=== PATIENT | female | born 1990 | race Caucasian/White ===

== ENCOUNTER 2023-01-02 14:10 | Emergency (ER) | payer MEDICAID, SELFPAY ==
[2023-01-02 14:28] VITALS: BP 121/72; PULSE 80; RESP 19; TEMP 36.6; O2SAT 98; BMI 22.3
--- NOTE | 2023-01-02 14:28 | ED.GENADULT ---
HPI - General Adult General Chief complaint: Dental/Oral Stated complaint: teeth pain Time Seen by Provider: 01/02/23 14:42 Source: patient Mode of arrival: ambulatory Limitations: no limitations History of Present Illness HPI narrative: Patient is a 32 year old assigned female at with no reported medical history presenting to the emergency department today with right lower dental pain. Patient states that she cracked her tooth yesterday and has been trying to get into a dentist since it happened. Patient denies any dizziness, lightheadedness, abdominal pain, nausea, vomiting, fever, chills, blurry vision, double vision, loss of vision, chest pain, difficulty breathing, shortness of breath, back pain, night sweats, pain with urination, increased urinary frequency, increased urinary urgency, blood in her urine or stool, syncope or a near syncopal episode, recent trauma or falls, bowel incontinence, bladder incontinence, bowel retention, bladder retention, or any other complaints at this time. Onset (ago): day(s) (1) Location: mouth Radiation: non-radiation Severity: mild Severity scale (1-10): 3 Quality: dull Pain Consistency: constant Relieving factors: none Exacerbating factors: none Associated symptoms: denies other symptoms Treatments prior to arrival: other (tylenol) Related Data Previous Rx's Medication Instructions Recorded chlorhexidine gluconate 0.12 % 15 ml buccal BID #118 mL 01/02/23 mouthwash (Peridex) oxycodone 5 mg tablet 5 mg PO Q6H PRN pain #7 tabs 01/02/23 penicillin V potassium 500 mg 500 mg PO BID 7 days #14 tabs 01/02/23 tablet Allergies Allergy/AdvReac Type Severity Reaction Status Date / Time hydromorphone [From DILAUDID] AdvReac Mild HALLUCINATI Verified 01/02/23 14:28 ONS erythromycin base AdvReac Unknown STOMACH Verified 01/02/23 14:28 [ERYTHROMYCIN BASE] UPSET NSAIDS (Non-Steroidal AdvReac Unknown kidney Verified 01/02/23 14:28 Anti-Inflamma failure [NSAIDS] Erythromycin Allergy Unknown sick Uncoded 01/02/23 14:28 nsaids Allergy Unknown kidney pain Uncoded 01/02/23 14:28 Review of Systems Constitutional: Constitutional: Reports no additional constitutional complaints, Denies chills, Denies fever(s) and Denies night sweats Eyes: Eyes: Reports no additional eye complaints, Denies blurry vision, Denies change in vision, Denies diplopia, Denies eye discharge, Denies loss of vision and Denies eye pain ENT: Denies dizziness and Reports mouth pain Cardiovascular: Cardiovascular: Reports no additional cardiovascular complaints, Denies chest pain, Denies lightheadedness, Denies Loss of Consciousness and Denies dyspnea Respiratory: Respiratory: Reports no additional respiratory complaints and Denies dyspnea Gastrointestinal: Gastrointestinal: Reports no additional gastrointestinal complaints, Denies abdominal pain, Denies melena, Denies hematochezia, Denies change in bowel habits and Denies change in stool character Genitourinary: Genitourinary: Denies hematuria, Denies urinary frequency, Denies dysuria, Denies urinary incontinence, Denies urinary hesitancy and Denies urinary urgency Musculoskeletal: Musculoskeletal: Reports no additional musculoskeletal complaints, Denies numbness and Denies tingling Neurologic: Denies dizziness, Denies loss of vision, Denies numbness and Denies tingling Psychiatric: Psychiatric: Reports no additional psychiatric complaints Endocrine: Endocrine: Reports no additional endocrine complaints Hematologic/Lymphatic: Hematologic/Lymphatic: Reports no additional hematologic/lymphatic complaints Allergic/Immunologic: Allergic/Immunologic: Reports no additional allergic/immunologic complaints PMFSH Past Medical History Attestation statement: The following information was validated with the patient. Source: old records reviewed and nursing notes reviewed Physical Exam ED Vital Signs: Vital Signs - 24 hr 01/02/23 14:28 Temperature 98 F Pulse Rate 80 Respiratory Rate 19 Blood Pressure 121/72 Pulse Oximetry 98 Oxygen Delivery Method Room Air BMI result Body Mass Index 22.3 [facility] Teeth image: 1. Crack present Medical Decision Making Medical Decision Making MDM Narrative: Patient is a 32 year old assigned female at with no reported medical history presenting to the emergency department today with right lower dental pain. Patient's physical exam showed an obviously cracked right lower molar. I explained my physical exam findings to the patient. I answered all questions asked by the patient. I explained to the patient that we do not have an concrete floater dentist here and do not have any emergency dental resources. I explained to the patient that I will prescribe pain medication and antibiotics but she will need to see a dentist to have her tooth repaired or removed to truly resolve the pain. I stressed the importance of the patient taking her medication as prescribed. I stressed the importance of the patient following up with her primary care provider and a dentist. I stressed the importance of the patient returning to the emergency department immediately if her symptoms were to worsen or if she were to develop any dizziness, shortness of breath, difficulty breathing, chest pain, blurry vision, loss of vision, nausea, vomiting, abdominal pain, fever, chills, back pain, or any other complaints. Patient verbalized agreement and understanding with this treatment plan and discharge. Differential Diagnosis Differential Diagnoses: The differential diagnosis associated with the presentation includes Dental pain Dental caries Dental abscess Cracked tooth Dental fx Prescription Management I considered prescription management with: Pain Medication (prescribed) and Antibiotic (prescribed to cover for the forming of a dental abscess) Discharge Plan Discharge Clinical Impression: Pain, dental Patient Disposition: Home, Self-Care Instructions: Toothache (ED) Additional Instructions: Follow up with your primary care provider and a dentist. Return to the emergency department immediately if your symptoms worsen or if you develop any dizziness, shortness of breath, difficulty breathing, chest pain, blurry vision, loss of vision, nausea, vomiting, abdominal pain, fever, chills, back pain, or any other complaints. Call or visit any of the clinics below to establish with a dentist: [facility] [address] [place] [address] [facility] [address] [facility], [address] [address] [facility] [address] [place] [id number] [facility] [address] [place] [address] [place] [address] [place] [address] Prescriptions: New penicillin V potassium 500 mg tablet 500 mg PO BID 7 Days Qty: 14 0RF chlorhexidine gluconate [Peridex] 0.12 % mouthwash 15 ml buccal BID Qty: 118 0RF oxycodone 5 mg tablet 5 mg PO Q6H PRN (Reason: pain) Qty: 7 0RF Rx Instructions: Partial Fill upon patient request. Referrals: [facility] [Provider Group] (Call to establish and follow up with a primary care provider. If you already have a primary care provider, please follow up with them.) [facility] [place] [Provider Group] (Call to establish and follow up with a primary care provider. If you already have a primary care provider, please follow up with them.) [facility] [Provider Group] (Call to establish and follow up with a primary care provider. If you already have a primary care provider, please follow up with them.) Print Language: [place]
== END 2023-01-02 14:58 | disposition home or self-care (01) ==
PROVIDERS: Emergency Provider Emergency Medicine Emergency Medical Services
DX: K08.89 Other specified disorders of teeth and supporting structures (principal)
CPT/HCPCS: 99282; 99283